=== PATIENT | male | born 1990 | race African-American/Black ===

== ENCOUNTER 2017-07-19 10:05 | Emergency (ER) | payer SELFPAY ==
[~2017-07-19] VITALS: Ht 170.2 cm; Wt 59.5 kg
[2017-07-19 10:46] LABS: BASOPHIL (%) 0.3 % (0-1); EOSINOPHIL (%) 0.1 % (0-5); HEMATOCRIT 46.2 % (38.0-50.0); IMMATURE GRANULOCYTE (%) 0.6 % (0.0-0.7); LYMPHOCYTE (%) 8.9 % (15-42); LYMPHOCYTE COUNT 1.3 K/uL (1.0-2.8); MCH 29.9 PG (29.0-34.0); MCHC 34.6 G/DL (30.0-36.0); MCV 86.4 FL (86-99); MONOCYTE (%) 4.5 % (3-12); MONOCYTE COUNT 0.6 K/uL (0-0.8); NEUTROPHIL (%) 85.6 % (45-76); NEUTROPHIL COUNT 12.2 K/uL (1.8-6.4); PLATELET COUNT 321 K/uL (156-360); RBC DIS.WIDTH-CV 12.3 % (11.8-14.6); RBC DIS.WIDTH-SD 38.9 % (39-53); RED BLOOD COUNT 5.35 M/uL (4.00-5.50); WHITE BLOOD COUNT 14.2 K/uL (4.1-10.2)
[2017-07-19 10:53] LABS: INTER. NORMALIZED RATIO 1.2
[2017-07-19 10:56] LABS: PTT 35.6 SEC (25-37)
[2017-07-19 10:57] LABS: ALBUMIN 3.7 g/dL (3.2-4.8); CHLORIDE 103 mEq/L (99-109); POTASSIUM 3.7 mEq/L (3.7-5.4)
[2017-07-19 10:58] LABS: SODIUM 138 mEq/L (136-147)
[2017-07-19 11:00] LABS: GLUCOSE 113 mg/dL (70-99); TOTAL PROTEIN 7.9 g/dL (6.4-8.3)
[2017-07-19 11:02] LABS: TOTAL BILIRUBIN 0.4 mg/dL (0.0-1.0)
[2017-07-19 11:03] LABS: ALKALINE PHOSPHATASE 98 IU/L (3-129); CREATININE 0.9 mg/dL (0.6-1.3)
[2017-07-19 11:04] LABS: UREA NITROGEN (BUN) 11 mg/dL (9-23)
[2017-07-19 11:05] LABS: AST (GOT) 23 IU/L (2-34)
[2017-07-19 11:06] LABS: ALT (GPT) 31 IU/L (3-49)
[2017-07-19 11:07] LABS: CREATINE KINASE 65 IU/L (1-294); TOTAL CK 65 IU/L (1-294); TROP-I INTERPRETATION NEGATIVE; TROPONIN-I < 0.01 ng/mL (0.0-0.30)
[2017-07-19 11:10] LABS: GFR ESTIMATE (CALCULATED) > 59 mL/min/ (58.99-99999)
[2017-07-19 11:13] LABS: CK-MB 0.8 ng/mL (0.0-4.9); CKMB RELATIVE INDEX 1.2 (0.0-3.9)
[2017-07-19] MEDS ORDERED: MIRALAX17 GM PO (13:11)
[2017-07-19] MEDS ORDERED: BENTYL20 MG PO (13:11)
[2017-07-19] MEDS ORDERED: PROVENTIL HFA6.7 GM IH (13:11)
[2017-07-19] MEDS ORDERED: MOTRIN800 MG PO (13:51)
[2017-07-19 13:59] VITALS: BP 125/71
[2017-07-20] MEDS ORDERED: COUGH SYRU100 MG/5 M PO (20:23)
[2017-07-20] MEDS ORDERED: SEROQUEL300 MG PO (20:23)
[2017-07-20] MEDS ORDERED: ONE DAILY1 EAC3 PO (20:23)
== END 2017-07-19 14:00 | disposition home or self-care (01) ==
LOC: EME 10:05
PROVIDERS: Emergency Medicine
DX: J45.909 Unspecified asthma, uncomplicated (principal); R10.30 Lower abdominal pain, unspecified; K59.00 Constipation, unspecified; M25.561 Pain in right knee; R11.2 Nausea with vomiting, unspecified; K76.0 Fatty (change of) liver, not elsewhere classified; Z72.0 Tobacco use
CPT/HCPCS: 71045; 71275; 73564; 74177; 80053; 82550; 82553; 84484; 85025; 85610; 85730; 93005; 94640; 99281; 99283; J3010; J7030

== ENCOUNTER 2017-07-20 16:17 | Observation (INO) | payer OTHER ==
[~2017-07-20] VITALS: Ht 170.2 cm; Wt 61.0 kg
[~2017-07-20 16:17] MED LIST: BENTYL20 MG PO; MIRALAX17 GM PO; MOTRIN800 MG PO; PROVENTIL HFA6.7 GM IH
[2017-07-20 16:47] LABS: HEMATOCRIT 44.2 % (38.0-50.0); HEMOGLOBIN 15.3 G/DL (12.5-16.6); MCH 30.2 PG (29.0-34.0); MCHC 34.6 G/DL (30.0-36.0); MCV 87.4 FL (86-99); PLATELET COUNT 350 K/uL (156-360); RBC DIS.WIDTH-CV 12.4 % (11.8-14.6); RBC DIS.WIDTH-SD 39.5 % (39-53); RED BLOOD COUNT 5.06 M/uL (4.00-5.50); WHITE BLOOD COUNT 11.7 K/uL (4.1-10.2)
[2017-07-20 17:00] LABS: CHLORIDE 104 mEq/L (99-109); POTASSIUM 3.1 mEq/L (3.7-5.4); SODIUM 139 mEq/L (136-147)
[2017-07-20 17:01] LABS: GLUCOSE 152 mg/dL (70-99)
[2017-07-20 17:05] LABS: CREATININE 0.9 mg/dL (0.6-1.3); GFR ESTIMATE (CALCULATED) > 59 mL/min/ (58.99-99999)
[2017-07-20 17:06] LABS: UREA NITROGEN (BUN) 12 mg/dL (9-23)
[2017-07-20 18:02] LABS: SERUM ETHYL ALCOHOL < 10 mg/dL
[2017-07-20] MEDS ORDERED: COUGH SYRU100 MG/5 M PO (20:23)
[2017-07-20] MEDS ORDERED: ONE DAILY1 EAC3 PO (20:23)
[2017-07-20] MEDS ORDERED: SEROQUEL300 MG PO (20:23)
[2017-07-20 22:45] VITALS: BP 134/93
[2017-07-21 00:23] LABS: HEMATOCRIT 42.5 % (38.0-50.0); HEMOGLOBIN 14.3 G/DL (12.5-16.6); MCHC 33.6 G/DL (30.0-36.0); MCV 89.3 FL (86-99); PLATELET COUNT 327 K/uL (156-360); RBC DIS.WIDTH-CV 12.4 % (11.8-14.6); RBC DIS.WIDTH-SD 40.8 % (39-53); RED BLOOD COUNT 4.76 M/uL (4.00-5.50); WHITE BLOOD COUNT 11.2 K/uL (4.1-10.2)
[2017-07-21 04:13] VITALS: BP 148/84
[2017-07-21 04:56] LABS: HEMOGLOBIN 15.2 G/DL (12.5-16.6); MCH 29.8 PG (29.0-34.0); MCHC 33.8 G/DL (30.0-36.0); MCV 88.2 FL (86-99); PLATELET COUNT 334 K/uL (156-360); RBC DIS.WIDTH-CV 12.5 % (11.8-14.6); RBC DIS.WIDTH-SD 40.8 % (39-53); WHITE BLOOD COUNT 11.4 K/uL (4.1-10.2)
[2017-07-21 05:02] LABS: ALBUMIN 3.3 g/dL (3.2-4.8)
[2017-07-21 05:03] LABS: CHLORIDE 110 mEq/L (99-109); POTASSIUM 3.9 mEq/L (3.7-5.4); SODIUM 142 mEq/L (136-147)
[2017-07-21 05:08] LABS: ALKALINE PHOSPHATASE 72 IU/L (3-129)
[2017-07-21 05:09] LABS: CREATININE 0.8 mg/dL (0.6-1.3); GFR ESTIMATE (CALCULATED) > 59 mL/min/ (58.99-99999); GLUCOSE 99 mg/dL (70-99); TOTAL BILIRUBIN 0.5 mg/dL (0.0-1.0); TOTAL PROTEIN 6.2 g/dL (6.4-8.3)
[2017-07-21 05:10] LABS: UREA NITROGEN (BUN) 8 mg/dL (9-23)
[2017-07-21 05:11] LABS: ALT (GPT) 41 IU/L (3-49)
[2017-07-21 05:16] LABS: AST (GOT) 37 IU/L (2-34)
[2017-07-21 05:51] LABS: APPEARANCE CLEAR ((CLEAR)); BILIRUBIN NEGATIVE; BLOOD NEGATIVE; COLOR YELLOW ((YELLOW)); GLUCOSE (STRIP) NEGATIVE; KETONES NEGATIVE; LEUKOCYTES NEGATIVE; NITRITE NEGATIVE; PROTEIN (STRIP) NEGATIVE; SPECIFIC GRAVITY 1.015 (1.000-1.030); UCUL ADDED? NO; UROBILINOGEN 0.2 MG/DL (0.2-1.0)
[2017-07-21 07:01] VITALS: BP 118/77
[2017-07-21 07:10] LABS: BENZODIAZEPINES, URINE SCREEN Negative (200 ng/mL)
[2017-07-21 12:00] VITALS: BP 120/70
[2017-07-21] MEDS ORDERED: PROTONIX40 MG PO ×2 (12:53→14:06)
[2017-07-21] MEDS ORDERED: BENTYL20 MG PO ×2 (12:53→14:06)
[2017-07-21] MEDS ORDERED: MIRTAZAPINE15 MG PO (13:49)
== END 2017-07-21 18:22 | disposition home or self-care (01) ==
LOC: EXP 16:17 → EME 16:17 → 4SOUTH 20:51 → EDOF 20:51 → ENRESERV 20:57 → 4SOUTH 22:35
PROVIDERS: Emergency Medicine; Internal Medicine Gastroenterology; Physician Assistant
DX: R10.9 Unspecified abdominal pain (principal); K92.1 Melena; K92.0 Hematemesis; J45.909 Unspecified asthma, uncomplicated; F17.210 Nicotine dependence, cigarettes, uncomplicated; E87.6 Hypokalemia; K59.00 Constipation, unspecified; F41.9 Anxiety disorder, unspecified; F14.10 Cocaine abuse, uncomplicated; G47.00 Insomnia, unspecified; Z53.09 Procedure and treatment not carried out because of other contraindication
CPT/HCPCS: 80048; 80053; 80306 90; 81003; 82272; 85027; 86850; 86900; 86901; 87493; 87506; 99281; 99285; C9113; G0378; G0480; J1630; J1885; J2405; J7030

== ENCOUNTER 2017-07-23 14:18 | Inpatient (IN) | payer OTHER ==
[~2017-07-23] VITALS: Ht 170.2 cm; Wt 56.7 kg
[~2017-07-23 14:18] MED LIST changes: +COUGH SYRU100 MG/5 M PO; +MIRTAZAPINE15 MG PO; +ONE DAILY1 EAC3 PO; +PROTONIX40 MG PO; +SEROQUEL300 MG PO
[2017-07-23 15:16] LABS: ALBUMIN 3.8 g/dL (3.2-4.8); CHLORIDE 110 mEq/L (99-109); POTASSIUM 3.8 mEq/L (3.7-5.4); SODIUM 140 mEq/L (136-147)
[2017-07-23 15:19] LABS: GLUCOSE 100 mg/dL (70-99); HEMOGLOBIN 16.3 G/DL (12.5-16.6); MCH 29.9 PG (29.0-34.0); MCHC 34.7 G/DL (30.0-36.0); MCV 86.1 FL (86-99); RBC DIS.WIDTH-CV 12.3 % (11.8-14.6); RBC DIS.WIDTH-SD 38.1 % (39-53); RED BLOOD COUNT 5.46 M/uL (4.00-5.50); WHITE BLOOD COUNT 9.5 K/uL (4.1-10.2)
[2017-07-23 15:21] LABS: TOTAL BILIRUBIN 0.4 mg/dL (0.0-1.0)
[2017-07-23 15:22] LABS: ALKALINE PHOSPHATASE 80 IU/L (3-129); CREATININE 0.8 mg/dL (0.6-1.3); GFR ESTIMATE (CALCULATED) > 59 mL/min/ (58.99-99999); SERUM ETHYL ALCOHOL < 10 mg/dL
[2017-07-23 15:23] LABS: TOTAL PROTEIN 7.5 g/dL (6.4-8.3)
[2017-07-23 15:24] LABS: UREA NITROGEN (BUN) 4 mg/dL (9-23)
[2017-07-23 15:29] LABS: ALT (GPT) 281 IU/L (3-49); AST (GOT) 112 IU/L (2-34)
[2017-07-23 15:46] LABS: MAGNESIUM 2.6 mg/dL (1.3-2.7)
[2017-07-23 15:49] LABS: LIPASE 26 U/L (1.0-51.0)
[2017-07-23 16:04] LABS: IMM.PLATELET FRACTION 12.8 (1-7); PLATELET CLUMPS PRESENT - PLATELET COUNT APPEARS ADQ.; PLATELET COUNT UNABLE TO REPORT K/uL (156-360)
[2017-07-23 16:24] LABS: APPEARANCE SL.HAZY ((CLEAR)); BILIRUBIN NEGATIVE; BLOOD NEGATIVE; COLOR YELLOW ((YELLOW)); GLUCOSE (STRIP) NEGATIVE; KETONES NEGATIVE; LEUKOCYTES NEGATIVE; NITRITE NEGATIVE; PROTEIN (STRIP) NEGATIVE; SPECIFIC GRAVITY 1.017 (1.000-1.030); UROBILINOGEN 0.2 MG/DL (0.2-1.0)
[2017-07-23 16:28] LABS: BACTERIA RARE /HPF; EPITHELIAL CELLS RARE /HPF; MUCUS 2+ /LPF; RED BLOOD CELLS 0-5 /HPF (0-5); WHITE BLOOD CELLS 0-5 /HPF (0-5)
[2017-07-23 16:44] LABS: AMPHETAMINE NEGATIVE (500 ng/mL); BARBITURATES NEGATIVE (200 ng/mL); BENZODIAZEPINES NEGATIVE (150 ng/mL); BUPRENORPHINE NEGATIVE (10 ng/mL); COCAINE NEGATIVE (150 ng/mL); METHADONE NEGATIVE (200 ng/mL); METHAMPHETAMINE NEGATIVE (500 ng/mL); OPIATES (MORPHINE) NEGATIVE (100 ng/mL); OXYCODONE NEGATIVE (100 ng/mL); PHENCYCLIDINE NEGATIVE (25 ng/mL); PROPOXYPHENE NEGATIVE (300 ng/mL); THC CANNABINOIDS NEGATIVE (50 ng/mL); TRICYCLIC ANTIDEPRESSANTS NEGATIVE (300 ng/mL)
[2017-07-23] MEDS ORDERED: PROTONIX40 MG PO (18:52)
[2017-07-23 20:59] VITALS: BP 109/63
[2017-07-24 09:22] VITALS: BP 101/65
[2017-07-24 16:38] VITALS: BP 106/72
[2017-07-24 19:59] VITALS: BP 111/66
[2017-07-25 07:59] VITALS: BP 104/64
[2017-07-25 11:41] LABS: HEPATITIS B SURFACE ANTIGEN Nonreactive
[2017-07-25 11:42] LABS: ANTI-HEPATITIS A VIRUS (IGM) Nonreactive
[2017-07-25 11:43] LABS: ANTI-HEPATITIS B CORE (IGM) Nonreactive
[2017-07-25 11:44] LABS: HIV-1/2 AB/AG COMBO Nonreactive
[2017-07-25 11:55] LABS: HEPATITIS C ANTIBODY REACTIVE
[2017-07-25 16:18] VITALS: BP 121/76
[2017-07-26 07:40] VITALS: BP 107/63
[2017-07-26 15:27] VITALS: BP 109/61
[2017-07-27 07:50] VITALS: BP 115/69
[2017-07-27] MEDS ORDERED: NALTREXONE HCL50 MG PO ×2 (09:16→10:04)
[2017-07-27] MEDS ORDERED: PRAZOSIN HCL1 MG PO (09:16)
[2017-07-27] MEDS ORDERED: SEROQUEL100 MG PO (09:16)
[2017-07-27] MEDS ORDERED: QUETIAPINE FUMA25 MG PO (09:16)
[2017-07-27] MEDS ORDERED: MIRTAZAPINE30 MG PO (09:16)
[2017-07-27] MEDS ORDERED: MINIPRESS2 MG PO (09:18)
[2017-07-27] MEDS ORDERED: VIVITROL380 MG/3.4 IM (09:53)
[2017-07-27 11:03] LABS: ALBUMIN 3.8 G/DL (3.2-4.8); ALKALINE PHOSPHATASE 80 IU/L (3-129); ALT (GPT) 121 IU/L (3-49); AST (GOT) 38 IU/L (2-34); DIRECT BILIRUBIN 0.1 mg/dL (0.0-0.3); TOTAL BILIRUBIN 0.3 MG/DL (0.0-1.0); TOTAL PROTEIN 7.2 G/DL (6.4-8.3)
== END 2017-07-27 10:27 | disposition home or self-care (01) | DRG 897 ==
LOC: EME 14:18 → 1WEST 18:40 → EDOF 18:40 → ENRESERV 19:59 → 1WEST 20:43
PROVIDERS: Emergency Medicine; Psychiatry & Neurology Psychiatry
PROC: HZ2ZZZZ Detoxification Services for Substance Abuse Treatment (ICD-10-PCS; principal; 2017-07-23)
DX: F11.23 Opioid dependence with withdrawal (principal); Z68.1 Body mass index [BMI] 19.9 or less, adult; F41.9 Anxiety disorder, unspecified; K75.9 Inflammatory liver disease, unspecified; F14.10 Cocaine abuse, uncomplicated; F17.210 Nicotine dependence, cigarettes, uncomplicated; Z76.5 Malingerer [conscious simulation]; F13.19 Sedative, hypnotic or anxiolytic abuse with unspecified sedative, hypnotic or anxiolytic-induced disorder; Z79.51 Long term (current) use of inhaled steroids
CPT/HCPCS: 74022; 80053; 80074; 80076; 81003; 83690; 83735; 85027; 87389; 90839; 93005; 97150 GO; 97165 GO; 99202; 99281; 99284; G0480; J2060; J7030; Q0177

== ENCOUNTER 2017-07-28 20:34 | Emergency (ER) | payer SELFPAY ==
[~2017-07-28] VITALS: Ht 170.2 cm; Wt 60.0 kg
[~2017-07-28 20:34] MED LIST changes: +MINIPRESS2 MG PO; +MIRTAZAPINE30 MG PO; +NALTREXONE HCL50 MG PO; +PRAZOSIN HCL1 MG PO; +QUETIAPINE FUMA25 MG PO; +SEROQUEL100 MG PO; +VIVITROL380 MG/3.4 IM
[2017-07-28 23:00] LABS: HEMATOCRIT 42.4 % (38.0-50.0); HEMOGLOBIN 14.5 G/DL (12.5-16.6); MCH 30.7 PG (29.0-34.0); MCHC 34.2 G/DL (30.0-36.0); MCV 89.8 FL (86-99); RBC DIS.WIDTH-CV 12.8 % (11.8-14.6); RBC DIS.WIDTH-SD 41.6 % (39-53); RED BLOOD COUNT 4.72 M/uL (4.00-5.50); WHITE BLOOD COUNT 8.2 K/uL (4.1-10.2)
[2017-07-28 23:01] LABS: AMPHETAMINE NEGATIVE (500 ng/mL); BARBITURATES NEGATIVE (200 ng/mL); BENZODIAZEPINES NEGATIVE (150 ng/mL); BUPRENORPHINE NEGATIVE (10 ng/mL); COCAINE NEGATIVE (150 ng/mL); METHADONE NEGATIVE (200 ng/mL); METHAMPHETAMINE PRESUMPTIVE POSITIVE (500 ng/mL); OPIATES (MORPHINE) NEGATIVE (100 ng/mL); OXYCODONE NEGATIVE (100 ng/mL); PHENCYCLIDINE NEGATIVE (25 ng/mL); PROPOXYPHENE NEGATIVE (300 ng/mL); THC CANNABINOIDS NEGATIVE (50 ng/mL); TRICYCLIC ANTIDEPRESSANTS PRESUMPTIVE POSITIVE (300 ng/mL)
[2017-07-28 23:01] LABS: PLATELET COUNT 412 K/uL (156-360)
[2017-07-28 23:11] LABS: CHLORIDE 109 mEq/L (99-109); SODIUM 143 mEq/L (136-147)
[2017-07-28 23:12] LABS: GLUCOSE 121 mg/dL (70-99)
[2017-07-28 23:15] LABS: SERUM ETHYL ALCOHOL < 10 mg/dL
[2017-07-28 23:16] LABS: CREATININE 0.8 mg/dL (0.6-1.3); GFR ESTIMATE (CALCULATED) > 59 mL/min/ (58.99-99999)
[2017-07-28 23:18] LABS: UREA NITROGEN (BUN) 8 mg/dL (9-23)
[2017-07-28 23:19] LABS: SALICYLATE < 5.0 MG/DL (15-30)
[2017-07-28 23:20] LABS: ACETAMINOPHEN (TYLENOL) < 10 mcg/mL (10-30)
[2017-07-29 09:53] VITALS: BP 103/64
== END 2017-07-29 09:55 | disposition home or self-care (01) ==
LOC: EME 20:34
PROVIDERS: Emergency Medicine
DX: F43.23 Adjustment disorder with mixed anxiety and depressed mood (principal); R45.851 Suicidal ideations; J45.909 Unspecified asthma, uncomplicated; B19.20 Unspecified viral hepatitis C without hepatic coma; F17.200 Nicotine dependence, unspecified, uncomplicated
CPT/HCPCS: 80048; 85027; 90837; 90839; 99281; 99285; G0480